=== PATIENT | female | born 1935 | race Caucasian/White ===

== ENCOUNTER 2017-02-02 02:40 | Inpatient (IN) | payer OTHER ==
--- NOTE | ~2017-02-02 | HP ---
History And Physical [address] [place]. [address] NAME: BONY ARELLANO : 35 STATUS : ADM IN PAT#: [id number] AGE: 81 ADM/REG DATE : 02/02/17 MR#: [id number] REPORT SERV DATE: 02/02/17 DICTATED BY: SARAH RIOJAS DATE: 02/02/17 REPORT STATUS : Draft TRANSCRIBED BY: MODL DATE: 02/02/17 DATE OF ADMISSION: 02/02/2017 CHIEF COMPLAINT: An 81-year-old female presenting with nausea, vomiting, decreased appetite, and evidence of hyponatremia with confusion. HISTORY OF PRESENTING ILLNESS: The patient's history was obtained through careful interview with the patient's son, daughter, coupled with review of [facility] medical records. For about a week now, the patient has been ill. She has had significant nausea, occasional dry heaves, and decreased appetite. On 01/31/2017, she went to see her primary care physician, was either diagnosed with sinusitis or urinary tract infection, but was thought to have some kind of bacterial infection, was placed on ciprofloxacin. Despite being on this antibiotic, she has had really no improvement in her clinical course with increasing dry heaves and almost no food intake. This evening, she began shaking, uncontrollable (but not actually a seizure). She developed confusion. There was no loss of consciousness. She felt "like my muscles were drawing up" and she became severely diaphoretic. She describes abdominal cramping over the last week, intermittent, diffuse, 8/10 severity. REVIEW OF SYSTEMS: Otherwise, a 14-point review of systems was obtained and was negative. PAST MEDICAL HISTORY: 1. Cervical cancer, 2002. 2. Hypertension. 3. Levoscoliosis. 4. Hyponatremia with polydipsia, on hydrochlorothiazide in the past. Sodium as low as 115 at one point. 5. Anemia. 6. ERCP with sphincterotomy. 7. Epidural injections of the spine. 8. Anemia. 9. Elevated cholesterol. PAST SURGICAL HISTORY: 1. Hysterectomy. 2. Cholecystectomy. 3. Appendectomy. 4. Left carotid endarterectomy. 5. Left knee surgery. History And Physical [address] [place]. [address] NAME: BONY ARELLANO : 35 STATUS : ADM IN PAT#: [id number] AGE: 81 ADM/REG DATE : 02/02/17 MR#: [id number] REPORT SERV DATE: 02/02/17 DICTATED BY: SARAH RIOJAS DATE: 02/02/17 REPORT STATUS : Draft TRANSCRIBED BY: TYLER DATE: 02/02/17 ALLERGIES: TO IV CONTRAST AND LATEX. SOCIAL HISTORY: No tobacco abuse. No alcohol abuse. Is a . Has children, son and daughter live nearby, but she lives alone in [place], [place]. FAMILY HISTORY: Diabetes. CURRENT MEDICATIONS: Unknown at this time, but we have requested pharmacy to obtain and request medication list. PHYSICAL EXAMINATION: VITAL SIGNS: Temperature 97.7, pulse 87, blood pressure 149/87, respiratory rate 18, O2 saturation 100% on room air. GENERAL: An ill-appearing female in evidence of some distress secondary to shaking, confusion. HEENT: Pupils equal, round, and reactive to light. No conjunctival pallor. No scleral icterus. Nares are patent. Oropharynx is clear of obstruction. Moist mucous membranes. NECK: Trachea midline. No thyromegaly. LYMPH: No cervical lymphadenopathy. No supraclavicular lymphadenopathy. RESPIRATORY: Clear to auscultation at bases. No wheezes, rales, or rhonchi. Normal respiratory effort. CARDIOVASCULAR: Regular rate and rhythm. No murmurs, rubs, or gallops. No extremity edema is appreciated. ABDOMEN: Diffusely tender by my examination. Nonfocal. There seems to be some guarding though. No rebound. Nondistended. No hepatosplenomegaly. DERMATOLOGICAL: Warm and dry extremities. No pallor, no cyanosis. PSYCHIATRIC: Normal affect. Good mood. Alert and oriented x3 currently. LABORATORY DATA: White blood cell count 11.6, hemoglobin 12, hematocrit 35, platelets 294. Sodium 118, potassium 4.3, chloride 87, bicarb 23, BUN 15, creatinine 0.94, glucose 92. Lactic acid 2.8. Lipase 238. Liver enzymes within normal limits. STUDIES: CT of the abdomen and pelvis shows no acute intraabdominal process. ASSESSMENT AND PLAN: 1. Severe hypovolemic hyponatremia. Treat with IV fluids. Monitor closely. Check SIADH studies. Follow closely. 2. Lactic acidosis. Provide supportive care. Place on IV fluids. 3. Abdominal pain with lactic acidosis. Would like to check a mesenteric arterial Doppler ultrasound, but noted negative CT scan of the abdomen and pelvis. 4. Leukocytosis. Monitor for overt fevers. Check urinalysis. Check ESR and CRP. [facility] History And Physical [address] [address] NAME: BONY ARELLANO : 35 STATUS : ADM IN PAT#: [id number] AGE: 81 ADM/REG DATE : 02/02/17 MR#: [id number] REPORT SERV DATE: 02/02/17 DICTATED BY: SARAH RIOJAS DATE: 02/02/17 REPORT STATUS : Draft TRANSCRIBED BY: TYLER DATE: 02/02/17 Sarah Riojas M.D. / [id number] CC: Cain Camarillo M.D.
--- NOTE | ~2017-02-02 | DS ---
Discharge Summary [facility] [address] [facility] [place]. [address] NAME: BONY ARELLANO : 35 STATUS : DIS IN PAT#: [id number] AGE: 81 ADM/REG DATE : 02/02/17 MR#: [id number] REPORT SERV DATE: 02/03/17 DICTATED BY: ELSA ROSALES DATE: 02/03/17 REPORT STATUS : Draft TRANSCRIBED BY: MODL DATE: 02/03/17 ADMISSION DATE: 02/02/2017 DISCHARGE DATE: 02/03/2017 PRINCIPAL DIAGNOSIS: Severe hyponatremia due to diuretic use, nausea and vomiting. SECONDARY DIAGNOSES: Hypovolemia, dementia, iron-deficiency anemia, leukocytosis. HISTORY OF PRESENT ILLNESS: Please see Dr. Miranda's dictation on 02/02/2017. HOSPITAL COURSE: The patient admitted with profound hyponatremia with a sodium of 118 in the setting of nausea, vomiting, abdominal pain. Imaging had been negative, the patient actually was resuscitated with volume given fluid restriction. She was assessed for SIADH, but found to have a urine osmolality of only 316, but in the setting of serum hypo- osmolality suggestive of some mild SIADH. In any event, her sodium came up gradually. Her mental status returned to baseline which was found to be demented. She was found to have microcytic anemia with mild iron deficiency, but actually had received maximum benefit of the hospitalization by the afternoon of 02/03/2017 and she had improved at a faster pace than what expect based on the natural history of the disease, so she was discharged in satisfactory condition. Follow up with Dr. Noel Sanon in 1-2 weeks. Continue her home medications but instructed not to take diuretics anymore. DICTATED BY: Cain Loera/TYLER Elsa Rosales M.D. / [id number] CC: Cain Loera M.D.
[~2017-02-02 02:40] MED LIST: ASAB PO; AUG500 PO; AVAPRO300 MG PO; C25 PO; CALTRA600D PO; CELEBREX2 PO; CELEBREX50 MG PO; DIOV160 PO; DIOV80 PO; DIOVAN320 MG PO; FISH-EPA1000 MG PO; FOSAMAX70 MG PO; IBU-200200 MG PO; LEVOTHYROXIN50 MCG PO; NORV5 PO; OSTEO BI-FLEX PO; PROTONIX PO; TRICOR145 PO; ULTRAM50 PO; ZIAC2 PO; ZIAC5 PO; [UNRECOGNIZED DRUG - OTHER] OP; [UNRECOGNIZED DRUG - OTHER] T; synthroid PO
[2017-02-02 03:08] LABS: BASOPHILS 0.1 %; BASOPHILS ABSOLUTE 0.01 10/3/uL (0.0-0.16); EOSINOPHILS 0 %; HEMATOCRIT 34.9 % (36.0-48.0); HEMOGLOBIN 12.5 g/dL (12.0-16.0); IMMATURE GRANULOCYTES 0.6 %; IMMATURE GRANULOCYTES ABSOLUTE 0.07 10/3/uL (0.0-0.11); LYMPHOCYTES 17.3 %; MEAN CORPUS HGB CONC 35.8 g/dL (32.0-36.0); MEAN CORPUSCULAR HEMOGLOB 28.3 pg (26.0-34.0); MEAN PLATELET VOLUME 9.6 fL (9.2-13.0); MONOCYTES 7.4 %; MONOCYTES ABSOLUTE 0.85 10/3/uL (0.21-1.20); NEUTROPHILS 74.6 %; NEUTROPHILS ABSOLUTE 8.63 10/3/uL (2.02-8.40); PLATELET COUNT 294 10/3/uL (150-400); RBC DISTRIBUTION WIDTH 12.8 % (12.0-16.0); RED CELL COUNT 4.42 10/6/uL (4.0-5.6); WHITE BLOOD CELLS 11.6 10/3/uL (4.5-10.5)
[2017-02-02 03:09] LABS: MANUAL DIFF NO %
[2017-02-02 03:26] LABS: A/G RATIO 1.3 (0.7-1.9); ALBUMIN 3.9 G/DL (3.5-5.0); ALKALINE PHOSPHATASE 77 U/L (45-117); BUN (BLOOD UREA NITROGEN) 15 MG/DL (6-23); CALCIUM, SERUM 8.7 MG/DL (8.5-10.4); CHLORIDE, SERUM 87 MMOL/L (96-112); CO2 (CARBON DIOXIDE) 23 MMOL/L (24-34); CREATININE 0.84 MG/DL (0.55-1.02); GFR AFRICAN AMERICAN 76 ML/MIN (>=60); GFR NON AFRICAN AMERICAN 65 ML/MIN (>=60); GLOBULIN 3.1 G/DL (2.5-4.1); GLUCOSE, SERUM 92 MG/DL (60-99); POTASSIUM, SERUM 4.3 MMOL/L (3.5-5.3); SGOT(AST) 25 U/L (5-40); SGPT(ALT) 23 U/L (5-65); SODIUM, SERUM 118 MMOL/L (135-148); TOTAL BILIRUBIN 1.2 MG/DL (0-1.2)
[2017-02-02 06:36] LABS: ASCORBIC ACID (UR NOT ORDER) NEG (NEG); BILIRUBIN, URINE NEGATIVE (NEG); KETONE, URINE 20 MG/DL (NEG); LEUKOCYTE ESTERASE(NOT OR NEG (NEG); NITRITE (URINE) NEG (NEG); WBC (NOT ORDERED) (RFLEX) < 1 (0-5)
[2017-02-02 06:43] LABS: ER URINALYSIS TAT 0 Hrs 46 Mins
[2017-02-02] MEDS ORDERED: SODIUM PO (06:51)
[2017-02-02 08:07] LABS: A/G RATIO 1.2 (0.7-1.9); ALBUMIN 3.5 G/DL (3.5-5.0); ALKALINE PHOSPHATASE 71 U/L (45-117); BUN (BLOOD UREA NITROGEN) 12 MG/DL (6-23); CALCIUM, SERUM 8.4 MG/DL (8.5-10.4); CHLORIDE, SERUM 93 MMOL/L (96-112); CO2 (CARBON DIOXIDE) 20 MMOL/L (24-34); CREATININE 0.71 MG/DL (0.55-1.02); GFR AFRICAN AMERICAN 93 ML/MIN (>=60); GFR NON AFRICAN AMERICAN 80 ML/MIN (>=60); GLUCOSE, SERUM 90 MG/DL (60-99); POTASSIUM, SERUM 3.9 MMOL/L (3.5-5.3); SGOT(AST) 25 U/L (5-40); SGPT(ALT) 17 U/L (5-65); SODIUM, SERUM 120 MMOL/L (135-148); TOTAL BILIRUBIN 1.1 MG/DL (0-1.2); TOTAL PROTEIN 6.5 G/DL (6.0-8.5)
[2017-02-02 08:09] LABS: C-REACTIVE PROTEIN < 2.9 MG/L (<8.0)
[2017-02-02 12:55] LABS: BASOPHILS 0.1 %; BASOPHILS ABSOLUTE 0.01 10/3/uL (0.0-0.16); EOSINOPHILS 0.3 %; EOSINOPHILS ABSOLUTE 0.02 10/3/uL (0.0-0.53); HEMATOCRIT 34.8 % (36.0-48.0); HEMOGLOBIN 12.3 g/dL (12.0-16.0); IMMATURE GRANULOCYTES 0.4 %; IMMATURE GRANULOCYTES ABSOLUTE 0.03 10/3/uL (0.0-0.11); LYMPHOCYTES 16.2 %; LYMPHOCYTES ABSOLUTE 1.08 10/3/uL (0.67-4.30); MEAN CORPUS HGB CONC 35.3 g/dL (32.0-36.0); MEAN CORPUSCULAR VOLUME 79.3 fL (80-100); MEAN PLATELET VOLUME 9.4 fL (9.2-13.0); MONOCYTES 9.9 %; MONOCYTES ABSOLUTE 0.66 10/3/uL (0.21-1.20); NEUTROPHILS 73.1 %; NEUTROPHILS ABSOLUTE 4.87 10/3/uL (2.02-8.40); PLATELET COUNT 249 10/3/uL (150-400); RBC DISTRIBUTION WIDTH 12.8 % (12.0-16.0); RED CELL COUNT 4.39 10/6/uL (4.0-5.6)
[2017-02-02 12:56] LABS: MANUAL DIFF NO %; WHITE BLOOD CELLS 6.7 10/3/uL (4.5-10.5)
[2017-02-02 13:17] LABS: % IRON SAT 29 % (20-50); BUN (BLOOD UREA NITROGEN) 13 MG/DL (6-23); CALCIUM, SERUM 8.6 MG/DL (8.5-10.4); CHLORIDE, SERUM 97 MMOL/L (96-112); CREATININE 0.84 MG/DL (0.55-1.02); FERRITIN 70 NG/ML (8-252); GFR AFRICAN AMERICAN 76 ML/MIN (>=60); GFR NON AFRICAN AMERICAN 65 ML/MIN (>=60); IRON BINDING CAPACITY 321 MCG/DL (225-410); IRON, SERUM 92 MCG/DL (35-150); POTASSIUM, SERUM 4.2 MMOL/L (3.5-5.3)
[2017-02-02 13:19] LABS: CO2 (CARBON DIOXIDE) 25 MMOL/L (24-34); GLUCOSE, SERUM 111 MG/DL (60-99); PHOSPHORUS, SERUM 2.8 MG/DL (2.5-4.5); SODIUM, SERUM 127 MMOL/L (135-148)
[2017-02-02 16:14] LABS: CREATININE, URINE 34.5 MG/DL
[2017-02-02 20:37] LABS: BUN (BLOOD UREA NITROGEN) 12 MG/DL (6-23); CALCIUM, SERUM 8.5 MG/DL (8.5-10.4); CHLORIDE, SERUM 98 MMOL/L (96-112); CO2 (CARBON DIOXIDE) 23 MMOL/L (24-34); CREATININE 1.06 MG/DL (0.55-1.02); GFR AFRICAN AMERICAN 57 ML/MIN (>=60); GFR NON AFRICAN AMERICAN 49 ML/MIN (>=60); GLUCOSE, SERUM 97 MG/DL (60-99); POTASSIUM, SERUM 4.5 MMOL/L (3.5-5.3); SODIUM, SERUM 130 MMOL/L (135-148)
[2017-02-03 00:17] LABS: BUN (BLOOD UREA NITROGEN) 13 MG/DL (6-23); CALCIUM, SERUM 8.4 MG/DL (8.5-10.4); CHLORIDE, SERUM 100 MMOL/L (96-112); CO2 (CARBON DIOXIDE) 23 MMOL/L (24-34); CREATININE 0.89 MG/DL (0.55-1.02); GFR AFRICAN AMERICAN 70 ML/MIN (>=60); GFR NON AFRICAN AMERICAN 61 ML/MIN (>=60); GLUCOSE, SERUM 95 MG/DL (60-99); POTASSIUM, SERUM 4.3 MMOL/L (3.5-5.3); SODIUM, SERUM 130 MMOL/L (135-148)
[2017-02-03 01:14] LABS: BUN (BLOOD UREA NITROGEN) 13 MG/DL (6-23); CALCIUM, SERUM 8.4 MG/DL (8.5-10.4); CHLORIDE, SERUM 102 MMOL/L (96-112); CO2 (CARBON DIOXIDE) 21 MMOL/L (24-34); CREATININE 0.81 MG/DL (0.55-1.02); GFR AFRICAN AMERICAN 79 ML/MIN (>=60); GFR NON AFRICAN AMERICAN 68 ML/MIN (>=60); GLUCOSE, SERUM 93 MG/DL (60-99); PHOSPHORUS, SERUM 2.4 MG/DL (2.5-4.5); POTASSIUM, SERUM 4.2 MMOL/L (3.5-5.3); SODIUM, SERUM 132 MMOL/L (135-148)
[2017-02-03 04:59] LABS: BUN (BLOOD UREA NITROGEN) 11 MG/DL (6-23); CALCIUM, SERUM 8.5 MG/DL (8.5-10.4); CHLORIDE, SERUM 104 MMOL/L (96-112); CO2 (CARBON DIOXIDE) 23 MMOL/L (24-34); CREATININE 0.72 MG/DL (0.55-1.02); GFR AFRICAN AMERICAN 91 ML/MIN (>=60); GFR NON AFRICAN AMERICAN 79 ML/MIN (>=60); GLUCOSE, SERUM 93 MG/DL (60-99); SODIUM, SERUM 134 MMOL/L (135-148)
[2017-02-03] MEDS ORDERED: MEGACEUDL PO (11:15)
== END 2017-02-03 13:57 | disposition home or self-care (01) | DRG 641 ==
LOC: ER 02:40 → 4SO 04:36
PROVIDERS: Hospitalist; Internal Medicine; Specialist
DX: E87.1 Hypo-osmolality and hyponatremia (principal); E86.1 Hypovolemia; E87.2 Acidosis; F03.90 Unspecified dementia, unspecified severity, without behavioral disturbance, psychotic disturbance, mood disturbance, and anxiety; I10 Essential (primary) hypertension; T50.2X5A Adverse effect of carbonic-anhydrase inhibitors, benzothiadiazides and other diuretics, initial encounter; Y92.009 Unspecified place in unspecified non-institutional (private) residence as the place of occurrence of the external cause; D50.9 Iron deficiency anemia, unspecified; Z85.41 Personal history of malignant neoplasm of cervix uteri; Z91.041 Radiographic dye allergy status; Z91.040 Latex allergy status
CPT/HCPCS: 74176; 80048; 80053; 81001; 82330; 82533; 82570; 82728; 83540; 83550; 83605; 83690; 83735; 83935; 84100; 84300; 84443; 85025; 85652; 86140; 96374; 96375; 99285; A9270-GY; J2405; J2916; J3475